=== PATIENT | female | born 1995 | race Caucasian/White ===

== ENCOUNTER 2018-05-08 18:59 | Emergency (ER) | payer SELFPAY ==
--- NOTE | 2018-05-08 19:31 | EDPHY ---
General Time Seen by Provider: 05/08/18 19:23 Narrative: CHIEF COMPLAINT: Cut my hands HISTORY OF PRESENT ILLNESS: Patient presents with complains of accidental cuts to both hands. She states she was climbing up a ladder on a fire escape just prior to arrival when she slipped, causing lacerations to the 5th fingers of both hands. She denotes moderate pain and some bleeding from each site. No bony tenderness of the fingers. No difficulty been or straightening the fingers. No injuries to the palms of the hands or to the wrist. This was reportedly accidental. She has no numbness or tingling. No weakness. No injury elsewhere. Tetanus up-to- date. Right-hand dominant. TIME OF INJURY: Just prior to arrival TETANUS STATUS: Less than 4 years MEDICAL/SURGICAL/SOCIAL HISTORY: Uncomplicated REVIEW OF SYSTEMS: Ten systems reviewed and are negative unless otherwise noted in the HPI EXAMINATION General Appearance: Alert, no distress Head: normocephalic, atraumatic Cardiovascular: Pulses normal throughout. Brisk cap refill Neurological: A&O, light and 2 point sensory symmetric. Coffee Break Attendant and interossei strength symmetric Skin: Warm and dry, no rash. Right 5th finger laceration over the distal phalanx of the 5th finger, palmar side. 3 cm curvilinear. No pulsatile bleeding. No foreign body. No exposure of the flexor apparatus. Second laceration over the left 5th finger, palmar that runs the length of the proximal , middle and distal phalanges with superficial skin avulsion and skin flaps. No deep laceration. No pulsatile bleeding. No foreign body. Extremities: Minimal tenderness over the to 5th fingers with the lacerations are located. There is full extension of flexion of the fingers without deficit. No cyanosis or pallor DIFFERENTIAL DIAGNOSES: Including but not limited to laceration, laceration complication, laceration foreign body, laceration with deep tissue injury MDM: 7:25 p.m. Acute lacerations to the palmar side of both 5th fingers. The right hand will require suture repair. The left hand may require debridement and possible suture repair. There is too much dried blood to tell. I have administered digital block to both fingers. Re-evaluated after irrigation. No indication for x-ray. Tdap today. No acute distress. 8:20 p.m. Lacerations have been irrigated re-evaluated. The right 5th finger laceration has been repaired without difficulty. No signs of injury to the flexor apparatus. Full flexion of the superficialis and profundus. The left 5th finger injury was maceration and superficial laceration. No indication for suture repair. But I did perform debridement as below. We discussed wound care. We discussed return here in 10 days for suture removal. We discussed ED precautions, ice and elevation I have answered all her questions. She is well- appearing and discharged home stable condition. PROCEDURE: Laceration repair, 1. Consent: Verbal Location: Right 5th finger Length of repair: 3 cm curvilinear Complexity: Simple Layer involvement: Single Anesthesia: Digital block Irrigation: Extensive Debridement: None Procedure description: Following good anesthesia, the wound was copiously irrigated. Wound bed was explored with a sterile glove, and there is no foreign body noted. Wound borders were approximated well with good hemostasis. Tolerated well without complication. Suture/Staple material: 5-0 Prolene, 4 simple interrupted sutures Wound care: Routine as discussed Suture/Staple removal: 10 Days PROCEDURE: Debridement Indication: Maceration injury to left pinky finger Location: Palmar aspect of the left 5th finger, proximal middle and distal phalanges Length: 3 cm Anesthesia: Digital block Procedure: After good anesthesia, the finger was prepped with copious irrigation and colectomy x2. There were 3 cm of total nonviable tissue that were debrided without difficulty. No bleeding afterwards. Tolerated without complication. No foreign body. Range of motion intact postprocedure PROCEDURE: Digital Block, 1. Indication: Finger laceration Consent: Verbal Location: Left 5th finger Anesthesia: Lidocaine 1% plain, 0.25% Marcaine plain, 5mL Description: Base of the finger was prepped. The above was infused without difficulty. Tolerated well. Good anesthesia. Complications: None PROCEDURE: Digital Block, 2. Indication: Finger laceration Consent: Verbal Location: Right 5th finger Anesthesia: Lidocaine 1% plain, 0.25% Marcaine plain, 5mL Description: Base of the finger was prepped. The above was infused without difficulty. Tolerated well. Good anesthesia. Complications: None SUPERVISION: This patient was independently evaluated without direct involvement of or examination by the attending physician. ED Precautions: Worsening pain. Erythema, edema, cyanosis, pallor, paresthesia or anesthesia. - History Smoking Status: Never smoked - Objective Vital Signs: Initial Vital Signs Temperature (C) 97.5 F 05/08/18 19:12 Heart Rate 91 10/28/18 19:12 Respiratory Rate 18 05/08/18 19:12 Blood Pressure 140/96 H 05/08/18 19:12 O2 Sat (%) 96 05/08/18 19:12 O2 Delivery Mode Room Air Allergies/Adverse Reactions: penicillin G Allergy (Verified 05/08/18 19:14) Home Medications: Medication Instructions Recorded ALPRAZolam [Alprazolam] 0.5 mg PO 05/08/18 Cymbalta 60 MG (*) 90 mg PO DAILY 05/08/18 methYLPHENIDATE HCL [Ritalin 10mg 10 mg PO 05/08/18 (*)] Departure - Departure Disposition: Home, Routine, Self-Care Clinical Impression: Laceration of right little finger Qualifiers: Encounter type: initial encounter Damage to nail status: without damage Foreign body presence: without foreign body Qualified Code(s): S61.216A - Laceration without foreign body of right little finger without damage to nail, initial encounter Laceration of left little finger Qualifiers: Encounter type: initial encounter Damage to nail status: without damage Foreign body presence: without foreign body Qualified Code(s): S61.217A - Laceration without foreign body of left little finger without damage to nail, initial encounter Condition: Good Instructions: Care For Your Stitches (ED), Laceration (ED), Finger Laceration ( ED) Additional Instructions: 1. Finger splint as directed for 3 days 2. Keep the wound covered while showering for the next 3 days 3. Daily wound care as discussed, washing with antibacterial soap and apply bacitracin once daily 4. Return here for suture removal in 7-10days 5. Return here for signs of infection as discussed including warmth, redness, fever, drainage from the site 6. return here for increasing pain surrounding the laceration 7. Do not submerge the wound in any water, hot tub, swimming pool until sutures removed Referrals: Katty Horton MD [Medical Doctor] - As per Instructions Physician,Emergency DeptMD [Medical Doctor] - As per Instructions (7-10 days for suture removal)
[2018-05-08 21:03] VITALS: BP 130/78
== END 2018-05-08 21:05 | disposition home or self-care (01) ==
PROC: 3E0T3BZ Introduction of Anesthetic Agent into Peripheral Nerves and Plexi, Percutaneous Approach (ICD-10-PCS; principal; 2018-05-08)
PROC: 0HQFXZZ Repair Right Hand Skin, External Approach (ICD-10-PCS; 2018-05-08)
DX: S61.217A Laceration without foreign body of left little finger without damage to nail, initial encounter (principal); S61.216A Laceration without foreign body of right little finger without damage to nail, initial encounter; W11.XXXA Fall on and from ladder, initial encounter; Y93.89 Activity, other specified; Y92.9 Unspecified place or not applicable; Y99.9 Unspecified external cause status
CPT/HCPCS: L3925

== ENCOUNTER 2018-06-23 16:46 | Emergency (ER) | payer SELFPAY ==
--- NOTE | 2018-06-23 17:18 | EDPHY ---
H & P Stated Complaint: flu like symptoms fever/chills/n/v x 4 days Time Seen by Provider: 06/23/18 17:17 HPI/ROS: HPI: This is a 23-year-old female who presents with Chief Complaint: flu like symptoms fever/chills/n/v x 4 days Location: Body Quality: Fever, aches, fatigue Duration: 4 days Signs and Symptoms: + fever, + chills, + nausea, + vomiting, no diarrhea, no urinary symptoms, no chest pain, no shortness of breath, no wheezing, no cough, no sore throat, no neck stiffness, no joint pain, no swollen glands, no ear pain , no rash Timing: Acute, constant Severity: Moderate Context: Patient reports that 4 days ago she was at work at [employer] she started to have chills at the end of her shift. She went home and spiked a fever and felt nauseous accompanied by fatigue. The symptoms have remained for the last 3 days. Patient reports that she basically has been sleeping at her house and has not gone outside. Today she felt well enough to go to the urgent care, urinalysis was negative and because of her heart rate being above 120 is was sent to the emergency room for further evaluation. Patient denies any recent long distance travel, tobacco use, hormone replacement therapy. She denies any shortness of breath, cough, wheezing, lower extremity edema, calf swelling. Patient reports decreased appetite. Denies any urinary symptoms. Modifying Factors: None Comment: ROS: A comprehensive 10 system review of systems is otherwise negative aside from elements mentioned in the history of present illness. MEDICAL/SURGICAL/SOCIAL HISTORY: Medical history: Depression, anxiety, attention deficit hyperactivity disorder. LMP 2-3 weeks ago. Surgical history: Denies Social history: Nonsmoker. Denies drug use. Employed. Family history noncontributory. CONSTITUTIONAL: Polite and cooperative, nontoxic-appearing young adult white female, awake and alert, no obvious distress HEENT: Atraumatic and normocephalic, PERRL, EOMI. Nares patent; no rhinorrhea; no nasal mucosal edema. Tympanic membranes clear. Oropharynx clear, no exudate and moist pink mucosa. Airway patent. No lymphadenopathy. No meningismus. Cardiovascular: Normal S1/S2, tachycardia, regular rhythm, without murmur rub or gallop. PULMONARY/CHEST: Symmetrical and nontender. Clear to auscultation bilaterally. Good air movement. No accessory muscle usage. ABDOMEN: Soft, nondistended, nontender, no rebound, no guarding, no peritoneal signs, no masses or organomegaly. No CVAT. EXTREMITIES: 2/2 pulses, strength 5/5, no deformities, no clubbing, no cyanosis or edema. NEUROLOGICAL: no focal neuro deficits. GCS 15. SKIN: Warm and dry, tattoos present on arms, no erythema. no rash. Good capillary refill. Source: Patient Exam Limitations: No limitations - Personal History LMP (Females 10-55): 22-28 Days Ago Current Tetanus Diphtheria and Acellular Pertussis (TDAP): Yes - Medical/Surgical History Hx Asthma: No Hx Chronic Respiratory Disease: No Hx Diabetes: No Hx Cardiac Disease: No Hx Renal Disease: No Hx Cirrhosis: No Hx Alcoholism: No Hx HIV/AIDS: No Hx Splenectomy or Spleen Trauma: No Other PMH: DEPRESSION - Social History Smoking Status: Never smoked Constitutional: Initial Vital Signs Temperature (C) 38.4 C H 06/23/18 17:05 Heart Rate 137 H 06/23/18 17:05 Respiratory Rate 18 06/23/18 17:05 Blood Pressure 116/92 H 06/23/18 17:05 O2 Sat (%) 97 06/23/18 17:05 O2 Delivery Mode Room Air Allergies/Adverse Reactions: penicillin G Allergy (Verified 06/23/18 17:04) Home Medications: Medication Instructions Recorded ALPRAZolam [Alprazolam] 0.5 mg PO 05/08/18 Cymbalta 60 MG (*) 90 mg PO DAILY 05/08/18 methYLPHENIDATE HCL [Ritalin 10mg 10 mg PO 05/08/18 (*)] Gabapentin 06/23/18 Ondansetron Odt [Zofran Odt 4 mg 4 mg PO Q4 PRN #12 tab 06/23/18 (*)] Medical Decision Making ED Course/Re-evaluation: Vital signs reviewed and show tachycardia and fever. IV access and laboratory studies along with flu swab obtained Patient given 2 L normal saline, IV Toradol 30 mg, p.o. Tylenol 1000 mg, and IV promethazine 12.5 mg Abdomen is soft and nontender. I doubt surgical process and need for imaging. 1745: Labs reviewed. WBC 19 K, sodium 134, carbon dioxide 17, anion gap 16, creatinine 1.0 183: Influenza negative. [place] and strep test ordered After 2 L normal saline, vital signs repeated and improved. 1856: Reassessed patient who reports that she feels greatly improved and no longer nauseous. She reports that she feels hungry for the 1st time in 4 days and is requesting food and water. Philip crackers and cranberry juice provided to the patient. 1899: Rapid strep negative. 1909: [place] negative Tachycardia resolved and afebrile at discharge Suspect viral syndrome versus influenza like illness. Advised supportive care. This patient was seen under the supervision of my secondary supervising physician. I evaluated care for this patient independently. Differential Diagnosis: Adult fever including but not limited to viral syndromes including influenza, urinary tract infection, pneumonia and sepsis. - Data Points Laboratory Results: Laboratory Results 06/23/18 17:26 06/23/18 17:26 06/23/18 06/23/18 06/23/18 Unknown 18:40 17:46 WBC RBC Hgb Hct MCV MCH MCHC RDW Plt Count MPV Neut % (Auto) Lymph % (Auto) [place] % (Auto) Eos % (Auto) Baso % (Auto) Nucleat RBC Rel Count Absolute Neuts (auto) Absolute Lymphs (auto) Absolute Monos (auto) Absolute Eos (auto) Absolute Basos (auto) Absolute Nucleated RBC Immature Gran % Immature Gran # RBC/WBC/PLT Morphology Platelet Estimate Sodium Potassium Chloride Carbon Dioxide Anion Gap BUN Creatinine Estimated GFR Glucose Calcium Beta HCG, Qual Nasal Influenza A PCR Nasal Influenza B PCR Monoscreen NEGATIVE (NEGATIVE) Group A Strep Screen NEGATIVE (NEGATIVE) Group A Strep DNA Pending 06/23/18 06/23/18 06/23/18 17:30 17:26 17:26 WBC 18.59 10^3/uL H 10^3/uL (3.80-9.50) RBC 4.19 10^6/uL 10^6/uL (4.18-5.33) Hgb 12.8 g/dL g/dL (12.6-16.3) Hct 37.7 % L % (38.0-47.0) MCV 90.0 fL fL (81.5-99.8) MCH 30.5 pg pg (27.9-34.1) MCHC 34.0 g/dL g/dL (32.4-36.7) RDW 11.5 % % (11.5-15.2) Plt Count 284 10^3/uL 10^3/uL (150-400) MPV 9.7 fL fL (8.7-11.7) Neut % (Auto) 83.8 % H % (39.3-74.2) Lymph % (Auto) 3.4 % L % (15.0-45.0) [place] % (Auto) 11.3 % % (4.5-13.0) Eos % (Auto) 0.5 % L % (0.6-7.6) Baso % (Auto) 0.3 % % (0.3-1.7) Nucleat RBC Rel Count 0.0 % % (0.0-0.2) Absolute Neuts (auto) 15.58 10^3/uL H 10^3/uL (1.70-6.50) Absolute Lymphs (auto) 0.63 10^3/uL L 10^3/uL (1.00-3.00) Absolute Monos (auto) 2.10 10^3/uL H 10^3/uL (0.30-0.80) Absolute Eos (auto) 0.09 10^3/uL 10^3/uL (0.03-0.40) Absolute Basos (auto) 0.06 10^3/uL 10^3/uL (0.02-0.10) Absolute Nucleated RBC 0.00 10^3/uL 10^3/uL (0-0.01) Immature Gran % 0.7 % % (0.0-1.1) Immature Gran # 0.13 10^3/uL H 10^3/uL (0.00-0.10) RBC/WBC/PLT Morphology TNP Platelet Estimate TNP Sodium Potassium Chloride Carbon Dioxide Anion Gap BUN Creatinine Estimated GFR Glucose Calcium Beta HCG, Qual NEGATIVE Nasal Influenza A PCR NEGATIVE FOR FLU A (NEGATIVE) Nasal Influenza B PCR NEGATIVE FOR FLU B (NEGATIVE) Monoscreen Group A Strep Screen Group A Strep DNA 06/23/18 17:26 WBC RBC Hgb Hct MCV MCH MCHC RDW Plt Count MPV Neut % (Auto) Lymph % (Auto) [place] % (Auto) Eos % (Auto) Baso % (Auto) Nucleat RBC Rel Count Absolute Neuts (auto) Absolute Lymphs (auto) Absolute Monos (auto) Absolute Eos (auto) Absolute Basos (auto) Absolute Nucleated RBC Immature Gran % Immature Gran # RBC/WBC/PLT Morphology Platelet Estimate Sodium 134 mEq/L L mEq/L (135-145) Potassium 3.5 mEq/L mEq/L (3.5-5.2) Chloride 101 mEq/L mEq/L (97-110) Carbon Dioxide 17 mEq/l L mEq/l (22-31) Anion Gap 16 mEq/L H mEq/L (6-14) BUN 9 mg/dL mg/dL (7-23) Creatinine 1.0 mg/dL mg/dL (0.6-1.0) Estimated GFR > 60 Glucose 130 mg/dL H mg/dL (70-100) Calcium 8.5 mg/dL mg/dL (8.5-10.4) Beta HCG, Qual Nasal Influenza A PCR Nasal Influenza B PCR Monoscreen Group A Strep Screen Group A Strep DNA Medications Given: Discontinued Medications Acetaminophen (Tylenol) 1,000 mg PO EDNOW ONE Stop: 06/23/18 17:24 Last Admin: 06/23/18 17:36 Dose: 1,000 mg Sodium Chloride (Ns) 1,000 mls @ 0 mls/hr IV ONCE ONE; Wide Open PRN Reason: Protocol Stop: 06/23/18 17:22 Last Admin: 06/23/18 17:34 Dose: 1,000 mls Sodium Chloride (Ns) 1,000 mls @ 0 mls/hr IV ONCE ONE; Wide Open PRN Reason: Protocol Stop: 06/23/18 17:22 Last Admin: 06/23/18 17:33 Dose: 1,000 mls Ketorolac Tromethamine (Toradol) 30 mg IVP EDNOW ONE Stop: 06/23/18 17:24 Last Admin: 06/23/18 17:36 Dose: 30 mg Ondansetron HCl (Zofran Odt 4 Mg Prepack#2) 1 btl TAKEHOME EDNOW ONE Stop: 06/23/18 19:23 Last Admin: 06/23/18 19:24 Dose: 1 btl Ondansetron HCl (Zofran Odt 4 Mg Prepack#2) 1 btl TAKEHOME EDNOW ONE Stop: 06/23/18 19:25 Last Admin: 06/23/18 19:24 Dose: Not Given Promethazine HCl (Phenergan) 12.5 mg IVP ONCE ONE Stop: 06/23/18 17:24 Last Admin: 06/23/18 17:34 Dose: 12.5 mg Departure - Departure Disposition: Home, Routine, Self-Care Clinical Impression: Influenza-like illness Condition: Good Instructions: Ondansetron (By mouth), Influenza (ED), Viral Syndrome (ED) Additional Instructions: Rest as much as possible until you are feeling better. Take Tylenol 650 mg and/or ibuprofen 600 mg every 6-8 hours as needed for pain, fever. Consume a minimum of 8-10 glasses of water or electrolyte fluid replacement drinks that include Gatorade, Powerade, Pedialyte. Eat a bland diet for the next 48 hours and then slowly advance as tolerated. Take Zofran 1 tab every 4 hours as needed for nausea, vomiting. Return to the Emergency Room if symptoms do not resolve in the next 48-72 hours , experience intractable abdominal pain/nausea/vomiting. Adult Pain & Fever Control: We recommend Acetaminophen (Tylenol) and Ibuprofen (Motrin,Advil) for pain and fever control. When fever is high or pain severe, both drugs can be used at the same time, but at different intervals. Please note the time differences. Your dose is: Acetaminophen [650]mg every 4 to 6 hours Ibuprofen [600]mg every [6-8] hours with food OR Note: do not take Acetaminophen with Hydrocodone (Vicodin, Lortab) or Oycodone (Percocet). These medications also contain Acetaminophen. No more than 3000mg of Acetaminophen should be taken in 24 hours (for an adult). Referrals: [facility],. [Clinic] - As per Instructions Stand Alone Forms: Work Excuse Prescriptions: Ondansetron Odt [Zofran Odt 4 mg (*)] 4 mg PO Q4 PRN #12 tab PRN Reason: Nausea/Vomiting, Use 1st
[2018-06-23] MEDS ORDERED: NS 1,000 ML IV ONE ×2 (17:21)
[2018-06-23] MEDS ORDERED: PROMETHAZINE HCL 25 MG/ML INJ IVP ONE (17:23)
[2018-06-23] MEDS ORDERED: KETOROLAC 30 MG/1 ML SDV IVP ONE (17:23)
[2018-06-23] MEDS ORDERED: ACETAMINOPHEN 500 MG TAB PO ONE (17:23)
[2018-06-23 17:45] LABS: PLATELET COUNT 284 10^3/uL (150-400)
[2018-06-23] MEDS ORDERED: ONDANSETRON 4MG PREPACK#2 BTL TAKEHOME ONE ×3 (19:22→19:24)
[2018-06-23 19:30] VITALS: BP 112/56
== END 2018-06-23 19:27 | disposition home or self-care (01) ==
DX: B34.9 Viral infection, unspecified (principal); E86.9 Volume depletion, unspecified
CPT/HCPCS: 96374; J1885; J2550